=== PATIENT | female | born 1995 | race African-American/Black ===

== ENCOUNTER 2019-07-30 12:07 | Emergency (ER) | payer OTHER ==
[~2019-07-30] VITALS: Ht 167.6 cm; Wt 73.0 kg
[~2019-07-30 12:07] MED LIST: ALBU2SYR3 PO; AZIT250T PO; CETI10CA PO
[2019-07-30 12:15] VITALS: BP 134/72; PULSE 98; RESP 20; Ht 167.6 cm; Wt 73.0 kg
== END 2019-07-30 13:13 | disposition home or self-care (01) ==
LOC: E/R 12:07
DX: R05 Cough (principal); Z87.891 Personal history of nicotine dependence
CPT/HCPCS: 99283